=== PATIENT | female | born 1985 | race Two or more races ===

== ENCOUNTER 2018-06-16 10:20 | Emergency (ER) | payer OTHER ==
[2018-06-16 10:27] VITALS: BP 132/67
[2018-06-16] MEDS ORDERED: PSEUDOEPHEDRINE HCL 30 MG TABLET PO ONE (10:40)
[2018-06-16] MEDS ORDERED: GUAIFENESIN 600 MG TABLET.SA PO ONE (10:40)
[2018-06-16] MEDS ORDERED: LORATADINE 10 MG TABLET PO ONE (10:40)
[2018-06-16] MEDS ORDERED: IBUPROFEN 600 MG TABLET PO ONE (10:41)
--- NOTE | 2018-06-16 10:48 | ER Document Report ---
ED ENT - General Chief Complaint: Ear Pain Stated Complaint: EAR PAIN Time Seen by Provider: 06/16/18 10:40 Primary Care Provider: CHAKA LONGO PA-C [NO LOCAL MD] - Follow up in 3-5 days RAKAN POTTER DO [ASSOCIATE] - Follow up as needed Mode of Arrival: Ambulatory Information source: Patient Notes: 32-year-old female presents to ED for complaint of unresolved ear infection. She states she went to [facility] and they told her that she had a right ear infection and started on Cipro drops and amoxicillin. They told her if it was not resolved with these medications that she need to go to the emergency room immediately because she might have a bone infection. Patient is afebrile vital signs are stable patient walks with a even steady gait. TRAVEL OUTSIDE OF THE [place] IN LAST 30 DAYS: No - HPI Patient complains to provider of: Ear problem, Nose problem Onset: Last week Onset/Duration: Gradual Quality of pain: Achy, Dull Severity: Moderate Pain Level: 2 Context: Recent Illness Location of pain: Ears, Neck, Sinus Associated symptoms: Ear pain - Pressure causing decreased hearing, Runny nose, Sinus pain, Sinus drainage Similar symptoms previously: Yes Recently seen / treated by doctor: Yes - Related Data Allergies/Adverse Reactions: No Known Allergies Allergy (Verified 06/16/18 10:22) Past Medical History - General Information source: Patient - Social History Smoking Status: Current Every Day Smoker - vapor cig Frequency of alcohol use: None Drug Abuse: None 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 Lives with: Family Family History: Reviewed & Not Pertinent Patient has suicidal ideation: No Patient has homicidal ideation: No - Medical History Medical History: Other - Ankylosis spondylosis - Past Medical History Cardiac Medical History: Reports: None Pulmonary Medical History: Reports: None EENT Medical History: Reports: None Neurological Medical History: Reports: Hx Migraine Endocrine Medical History: Reports: None, Hx Hypothyroidism Renal/ Medical History: Reports: None Malignancy Medical History: Reports: None GI Medical History: Reports: None Musculoskeletal Medical History: Reports None Skin Medical History: Reports None Psychiatric Medical History: Reports: None Traumatic Medical History: Reports: None Infectious Medical History: Reports: None Surgical Hx: Negative Past Surgical History: Reports: None, Hx Tubal Ligation - Immunizations Immunizations up to date: Yes Hx Diphtheria, Pertussis, Tetanus Vaccination: Yes Review of Systems - Review of Systems Constitutional: No symptoms reported EENT: Ear pain, Nose congestion, Nose discharge, Sinus pressure, Sinus discharge Cardiovascular: No symptoms reported Respiratory: No symptoms reported Gastrointestinal: No symptoms reported Genitourinary: No symptoms reported Female Genitourinary: No symptoms reported Musculoskeletal: No symptoms reported Skin: No symptoms reported Hematologic/Lymphatic: No symptoms reported Neurological/Psychological: No symptoms reported -: Yes All other systems reviewed and negative Physical Exam - Vital signs Vitals: Temp Pulse Resp BP Pulse Ox 97.6 F 81 18 132/67 H 100 06/16/18 10:26 06/16/18 10:26 06/16/18 10:26 06/16/18 10:26 06/16/18 10:26 Interpretation: Normal - General General appearance: Appears well, Alert - HEENT Head: Normocephalic, Atraumatic Eyes: Normal Pupils: PERRL Ears: Normal External canal: Normal Tympanic membrane: Serous effusion. No: Bulging, Loss of landmarks Sinus: Normal Nasal: Purulent discharge, Swelling Mouth/Lips: Normal Mucous membranes: Normal Pharynx: Post nasal drainage Neck: Normal - Respiratory Respiratory status: No respiratory distress Chest status: Nontender Breath sounds: Normal Chest palpation: Normal - Cardiovascular Rhythm: Regular Heart sounds: Normal auscultation Murmur: No - Abdominal Inspection: Normal Distension: No distension Bowel sounds: Normal Tenderness: Nontender Organomegaly: No organomegaly - Back Back: Normal, Nontender - Extremities General upper extremity: Normal inspection, Nontender, Normal color, Normal ROM, Normal temperature General lower extremity: Normal inspection, Nontender, Normal color, Normal ROM, Normal temperature, Normal weight bearing. No: Akbar's sign - Neurological Neuro grossly intact: Yes Cognition: Normal Orientation: AAOx4 Pelzer Coma Scale Eye Opening: Spontaneous Liudmila Coma Scale Verbal: Oriented Pelzer Coma Scale Motor: Obeys Commands Pelzer Coma Scale Total: 15 Speech: Normal Motor strength normal: LUE, RUE, LLE, RLE Sensory: Normal - Psychological Associated symptoms: Normal affect, Normal mood - Skin Skin Temperature: Warm Skin Moisture: Dry Skin Color: Normal Course - Re-evaluation Re-evalutation: 06/16/18 10:54 Signs or symptoms of otitis media or otitis externa. She does have fluid behind her ear from her sinus congestion and swelling. [facility] Muc[facility]x and ibuprofen. She was given the name and number of Dr. Potter if she continues to have pain behind her ear or any increase in other symptoms. Patient was instructed to return to the ED immediately for any redness swollen behind the right ear or other concerns. - Vital Signs Vital signs: Temp Pulse Resp BP Pulse Ox 97.6 F 81 18 132/67 H 100 06/16/18 10:06/16/18 10:06/16/18 10:06/16/18 10:06/16/18 10:26 Discharge - Discharge Clinical Impression: Otalgia of both ears URI (upper respiratory infection) Qualifiers: URI type: unspecified viral URI Qualified Code(s): J06.9 - Acute upper respiratory infection, unspecified Condition: Stable Disposition: HOME, SELF-CARE Additional Instructions: UPPER RESPIRATORY ILLNESS: You have a viral infection of the respiratory passages -- a "cold." This common infection causes nasal congestion, drainage, and often sore throat and cough. It is highly contagious. The disease usually lasts about 10 to 14 days. There is no "cure" for the viral infection -- it must run its course. If there is a complication, such as bacterial infection in the nose, sinuses, middle ear, or bronchial tubes, antibiotics may be required. The antibiotics won't affect the virus. Drink plenty of fluids. A humidifier may help. An expectorant medication or decongestant may make you more comfortable. Use acetaminophen or ibuprofen for fever or aches. See the doctor if fever persists over two days, if there is any significant worsening of your symptoms, or if you simply fail to improve as expected. DECONGESTANT MEDICATION: A decongestant medicine has been suggested. Often this medicine is combined in the same tablet with an antihistamine or expectorant. This type of medicine is helpful in treating a bad cold or sinus condition, as well as in treatment of the nasal congestion of hay fever. It is not of much benefit for lung infections. Decongestant medicines are related to stimulants. They can cause an increase in blood pressure and heart rate. Persons with heart disease and high blood pressure should not take decongestants without discussing this with the physician. If you develop palpitations, chest pain, headache, or tremors, stop the medicine and consult your physician. COUGH-SUPPRESSANT & EXPECTORANT MEDICATION: You are to use a cough medication as needed for relief of symptoms. This medicine is a combination of an expectorant (to make the mucous thinner and more easily "coughed up") and a cough suppressant (to reduce the frequency of coughing). The cough-suppressant medicine is related to narcotics. You may experience mild nausea and sleepiness. Some patients who are very sensitive to narcotics may have stomach pain from this medicine. Taking the medicine with food reduces these side effects. Do not drive or work with machinery until you know how this medicine affects you. The expectorant should have no side effects. Iodine-containing expectorants (such as organidin) should not be taken by persons with active thyroid disease unless approved by your doctor. Call the doctor if you develop shortness of breath, hives, rash, itching, lightheadedness, or severe nausea and vomiting. USE OF ACETAMINOPHEN (Tylenol): Acetaminophen may be taken for pain relief or fever control. It's much safer than aspirin, offering a wider range of "safe" dosages. It is safe during . Some brand names are Tylenol, Panadol, Datril, Anacin 3, Tempra, and Liquiprin. Acetaminophen can be repeated every four hours. The following are maximum recommended dosages: >89 pounds or adults 650 mg to 900 mg Acetaminophen can be repeated every four hours. Maximum dose not to exceed 4000 mg a day. SMOKING: If you smoke, you should stop smoking. The tar and chemicals in cigarette smoke are harmful. Smoking has been shown to cause: emphysema chronic bronchitis lung cancer mouth and throat cancer stomach and pancreas cancer premature aging defects In addition, smoking increases ear and lung infections in children of smokers. You have been treated with Claritin 10 mg, Sudafed 30 mg, Mucinex 600 mg, and ibuprofen 600 mg in the emergency room for your congestion and ear pain. Your sinuses are swollen with postnasal drip which is causing part of the pressure in your ears there is fluid behind your ear problems which is causing the decreased hearing and the pain in your ears. If the medications that I have g iven you today decrease your discomfort then please get these medications [id number] and take them for your symptoms. If you are not feeling some relief from your pain and pressure to your ears by evening please call the ears nose and throat provider that I listed and schedule a appointment for follow-up for your decreased hearing and pain in your ears. If you develop any fever redness or swelling behind her ear return to the ED for a CT of your head. FOLLOW-UP CARE: If you have been referred to a physician for follow-up care, call the physicians office for an appointment as you were instructed or within the next two days. If you experience worsening or a significant change in your symptoms, notify the physician immediately or return to the Emergency Department at any time for re-evaluation. Forms: Elevated Blood Pressure, Smoking Cessation Education Referrals: CHAKA LONGO PA-C [NO LOCAL MD] - Follow up in 3-5 days RAKAN POTTER DO [ASSOCIATE] - Follow up as needed
== END 2018-06-16 10:53 | disposition home or self-care (01) ==
LOC: ER 10:20
DX: H92.03 Otalgia, bilateral (principal); J06.9 Acute upper respiratory infection, unspecified; B97.89 Other viral agents as the cause of diseases classified elsewhere; R09.81 Nasal congestion; J34.89 Other specified disorders of nose and nasal sinuses; R09.89 Other specified symptoms and signs involving the circulatory and respiratory systems; F17.290 Nicotine dependence, other tobacco product, uncomplicated
CPT/HCPCS: 99282

== ENCOUNTER 2019-11-29 10:17 | Emergency (ER) | payer OTHER ==
[2019-11-29 10:25] VITALS: BP 124/63
[2019-11-29] MEDS ORDERED: ACETAMINOPHEN 325 MG TABLET PO ONE (10:39)
[2019-11-29] MEDS ORDERED: HYDROCODONE/ACETAMINOPHEN 5-325 MG (6 TAB/ER DISP) PO PRN (10:43)
--- NOTE | 2019-11-29 10:44 | ER Document Report ---
HPI - HPI Time Seen by Provider: 11/29/19 10:36 Pain Level: 5 Notes: 34-year-old female presents to the emergency room for evaluation of left ankle pain after she tripped an hour ago. Patient states that her foot had fallen asleep, when she got up to walk, she twisted her ankle. Reports pain is 3 out of 5, throbbing achy. Has not tried any [id number] medications for this pain. Denies hitting her head any change in level consciousness. Denies any other area of injury. LMP approximately 2 weeks ago. denies fevers, chills, chest pain,palpitations, shortness of breath, dyspnea, nausea, vomiting, diarrhea, abdominal pain, hematuria,blurred vision, double vision, loss of vision, speech changes, LH, dizziness, syncope, headaches, wheezing, ST, URI, neck pain, weakness, bowel or bladder dysfunction, saddle anesthesia, numbness or tingling in bilateral upper or lower extremities equally, muscle paralysis, weakness in bilateral upper or lower extremities equally or rash. Denies IV drug use. MEDICATIONS: I agree with the patient medications as charted by the RN. ALLERGIES: I agree with the allergies as charted by the RN. PAST MEDICAL HISTORY/PAST SURGICAL HISTORY: Reviewed and agree as charted by RN. SOCIAL HISTORY: Reviewed and agree as charted by RN. FAMILY HISTORY: No significant familial comorbid conditions directly related to patient complaint EXAM: Reviewed vital signs as charted by RN. REVIEW OF SYSTEMS:reviewed vital signs by RN CONSTITUTIONAL : Denies fever, chills, or sweats. Denies recent illness. EENT: Denies eye, ear, throat, or mouth pain or symptoms. Denies nasal or sinus congestion or discharge. Denies throat, tongue, or mouth swelling or difficulty swallowing. CARDIOVASCULAR: Denies chest pain. Denies palpitations or racing or irregular heart beat. Denies ankle edema. RESPIRATORY: Denies cough, cold, or chest congestion. Denies shortness of breath, difficulty breathing, or wheezing. GASTROINTESTINAL: Denies abdominal pain or distention. Denies nausea, vomiting, or diarrhea. Denies blood in vomitus, stools, or per rectum. Denies black, tarry stools. Denies constipation. GENITOURINARY: Denies difficulty urinating, painful urination, burning, frequency, blood in urine, or discharge. FEMALE GENITOURINARY: Denies vaginal bleeding, heavy or abnormal periods, irregular periods. Denies vaginal discharge or odor. MUSCULOSKELETAL: reports left ankle pain. Denies back or neck pain or stiffness. Denies joint pain or swelling. SKIN: Denies rash, lesions or sores. HEMATOLOGIC : Denies easy bruising or bleeding. LYMPHATIC: Denies swollen, enlarged glands. NEUROLOGICAL: Denies confusion or altered mental status. Denies passing out or loss of consciousness. Denies dizziness or lightheadedness. Denies headache. Denies weakness or paralysis or loss of use of either side. Denies problems with gait or speech. Denies sensory loss, numbness, or tingling. Denies seizures. PSYCHIATRIC: Denies anxiety or stress. Denies depression, suicidal ideation, or homicidal ideation. ALL OTHER SYSTEMS REVIEWED AND NEGATIVE. PHYSICAL EXAMINATION: GENERAL: Well-appearing, well-nourished and in no acute distress. HEAD: Atraumatic, normocephalic. EYES: Pupils equal round and reactive to light, extraocular movements intact, conjunctiva are normal. ENT: Nares patent, oropharynx clear without exudates. Moist mucous membranes. NECK: Normal range of motion, supple without lymphadenopathy LUNGS: Breath sounds clear to auscultation bilaterally and equal. No wheezes rales or rhonchi. HEART: Regular rate and rhythm without murmurs ABDOMEN: Soft, nontender, nondistended abdomen. No guarding, no rebound. No masses appreciated. Female : deferred Musculoskeletal: Normal range of motion, no pitting or edema. No cyanosis. left ankle with swelling, tenderness on lateral aspect of ankle. pain with inversion. squeeze test negative. dtr +2 BLE. Limited APROM. distal pulses + 2 BLE equally. Full motor and sensory function of right lower extremity, some limited APROM of left ankle due to pain. No noted open wounds or abrasion. Normal gait. No vascular compromise. Peroneal nerve is intact with strong eversion and plantar flexion. Negative anterior drawer test. muscle strength 5/5 in BLE equally. NEUROLOGICAL: Cranial nerves grossly intact. Normal speech, normal gait. Normal sensory, motor exams PSYCH: Normal mood, normal affect. SKIN: Warm, Dry, normal turgor, no rashes or lesions noted. Dictation was performed using [employer] recognition software - REPRODUCTIVE Reproductive: DENIES: : - MUSCULOSKELETAL Musculoskeletal: REPORTS: Extremity pain Past Medical History - General Information source: Patient - Social History Smoking Status: Never Smoker Chew tobacco use (# tins/day): No Frequency of alcohol use: None Drug Abuse: None Family History: Reviewed & Not Pertinent Patient has homicidal ideation: No Neurological Medical History: Reports: Hx Migraine Endocrine Medical History: Reports: Hx Hypothyroidism Renal/ Medical History: Denies: Hx Peritoneal Dialysis Past Surgical History: Reports: Hx Tubal Ligation - Immunizations Immunizations up to date: Yes Hx Diphtheria, Pertussis, Tetanus Vaccination: Yes Vertical Provider Document - CONSTITUTIONAL Agree With Documented VS: Yes Exam Limitations: No Limitations General Appearance: WD/WN - INFECTION CONTROL TRAVEL OUTSIDE OF THE [place] IN LAST 30 DAYS: No Course - Re-evaluation Re-evalutation: 11/29/19 10:59 Afebrile vital stable no distress. Nurses notes reviewed. xray of ankle negative for fracture or dislocation. Patient placed in a Velcro air splint and given crutches. Advised to elevate above level of heart. Rice therapy. Advised to follow-up with forensic identification specialist within the next 5 days. Advised to get ankle re-x-rayed if she is experiencing worsening symptoms. Advised to not drive, drink alcohol or operate machinery while taking medication because s edation apparently had function. After performing a Medical Screening Examination, I estimate there is LOW risk for OPEN FRACTURE, COMPARTMENT SYNDROME, DEEP VENOUS THROMBOSIS, ACUTE TENDON RUPTURE, or NEUROVASCULAR INJURY thus I consider the discharge disposition reasonable. I have reevaluated this patient multiple times and no significant life threatening changes are noted. The patient and I have discussed the diagnosis and risks, and we agree with discharging home to closely follow-up with their primary doctor or the referral orthopedist with the understanding that symptoms and presentations can change. We also discussed returning to the Emergency Department immediately if new or worsening symptoms occur. We have discussed the symptoms which are most concerning (e.g., changing or worsening pain, numbness, weakness) that necessitate immediate return 11/29/19 13:24 - Vital Signs Vital signs: Temp Pulse Resp BP Pulse Ox 98.4 F 75 18 124/63 11/29/19 10:32 11/29/19 10:23 11/29/19 10:23 11/29/19 10:23 Discharge - Discharge Clinical Impression: Left ankle sprain Qualifiers: Encounter type: initial encounter Condition: Stable Disposition: HOME, SELF-CARE Instructions: Loyd Wrap ([facility]), Ankle Stirrup Splint ([facility]), Use of Crutches ([facility]), Ice & Elevation ([facility]), Oral Narcotic Medication ([facility]), Sprained Ankle ([facility]) Additional Instructions: Your x-ray does not show any acute fracture. You have a sprained ankle. Keep the area elevated, apply ice 20 minutes every 2 hours, and use crutches as needed. You should take ibuprofen 600 mg every 6 hours as needed for pain. Please return if you have worsening pain and swelling, fever greater than 101, you notice spreading redness from the area, or have any other symptoms that are concerning to you. Please follow-up with orthopedic surgery if your symptoms have not improved in the next 2-3 weeks. Return immediately for any new or worsening symptoms. Follow up with primary care provider, call tomorrow to make followup appointment. Referrals: MARILY RAWLS MD [Primary Care Provider] - Follow up as needed KIRSTY EPPS MD [ACTIVE STAFF] - Follow up in 3-5 days
--- NOTE | 2019-11-29 11:19 | RADIOLOGY REPORT (SQ) ---
EXAM DESCRIPTION: ANKLE LEFT COMPLETE IMAGES COMPLETED DATE/TIME: 11/29/2019 11:04 am REASON FOR STUDY: left ankle injury COMPARISON: None. NUMBER OF VIEWS: Three views. TECHNIQUE: AP, lateral, and oblique radiographic images acquired of the left ankle. LIMITATIONS: None. FINDINGS: MINERALIZATION: Normal. BONES: No acute fracture or dislocation. No worrisome bone lesions. JOINTS: No effusions. SOFT TISSUES: Lateral swelling. OTHER: No other significant finding. IMPRESSION: Soft tissue injury. TECHNICAL DOCUMENTATION: JOB ID: [id number] 2010 [employer]- All Rights Reserved Reading location - IP/workstation name: [email or web address]
== END 2019-11-29 13:20 | disposition home or self-care (01) ==
LOC: ER 10:17
DX: S93.402A Sprain of unspecified ligament of left ankle, initial encounter (principal); W01.0XXA Fall on same level from slipping, tripping and stumbling without subsequent striking against object, initial encounter
CPT/HCPCS: 99283

== ENCOUNTER 2020-03-22 16:49 | Emergency (ER) | payer OTHER ==
[2020-03-22 17:44] VITALS: BP 108/68
[2020-03-22] MEDS ORDERED: KETOROLAC TROMETHAMINE INJ/PF 30 MG/1 ML SDV IM ONE (20:10)
--- NOTE | 2020-03-22 20:12 | ER Document Report ---
ED Fever - General Chief Complaint: Fever Stated Complaint: FEVER, BODY ACHE, Time Seen by Provider: 03/22/20 20:03 Primary Care Provider: MARILY RAWLS MD [Primary Care Provider] - Follow up as needed Mode of Arrival: Ambulatory Information source: Patient TRAVEL OUTSIDE OF THE [place] IN LAST 30 DAYS: No - HPI Patient complains to provider of: Fever, body aches Notes: Patient here with complaints of fever of 101 yesterday with generalized body aches. The patient states that she has a history of ankylosing spondylitis she is having some pain at times. She has been taking a low-dose prednisone for the last several months prescribed by her doctor. She denies taking any chronic pain medication. She states that since yesterday she has had body aches and the fever. She denies any significant cough. She denies any chest pain or shortness of breath. No abdominal pain. No nausea, vomiting, diarrhea. No rash. No severe headache. No blurred or loss of vision. No neck stiffness. Nothing seems to make her pain better or worse. She denies any known specific Covid exposure. She denies any other specific complaints at this time. - Related Data Allergies/Adverse Reactions: No Known Allergies Allergy (Verified 11/29/19 10:31) Home Medications: renvoc. prednisone 5 daily. claritin Past Medical History - Social History Smoking Status: Never Smoker Chew tobacco use (# tins/day): No Frequency of alcohol use: None Drug Abuse: None Family History: Reviewed & Not Pertinent Neurological Medical History: Reports: Hx Migraine Endocrine Medical History: Reports: Hx Hypothyroidism Renal/ Medical History: Denies: Hx Peritoneal Dialysis Past Surgical History: Reports: Hx Tubal Ligation - Immunizations Immunizations up to date: Yes Hx Diphtheria, Pertussis, Tetanus Vaccination: Yes Review of Systems - Review of Systems -: Yes All other systems reviewed and negative Physical Exam - Vital signs Vitals: Temp Pulse Resp BP Pulse Ox 99.3 F 91 18 108/68 100 03/22/20 17:41 03/22/20 17:41 03/22/20 17:41 03/22/20 17:41 03/22/20 17:41 - Notes Notes: GENERAL: alert, cooperative, nontoxic, no distress. HEAD: normocephalic, atraumatic EYES: conjunctiva pink without discharge, no external redness or swelling. EARS: no external swelling, no external redness, no mastoid redness, swelling, tenderness. Ear canals are clear without swelling or drainage. TMs pearly lara, no redness, no bulging, normal landmarks, no perforation. NOSE: atraumatic, no external swelling. clear rhinorrhea noted. MOUTH/THROAT: mucous membranes moist and pink, posterior pharynx without erythema, swelling, exudate. No trismus or drooling. Voice is normal, no stridor. NECK: soft, supple, full range of motion, no meningismus. CHEST: no distress, lungs clear and equal throughout. No wheezing, rales, rhonchi. CARDIAC: regular rate and rhythm, no murmur EXTREMITIES: full range of motion of all extremities. No redness, no swelling. NEURO: alert and oriented A&O3, no focal deficits, full range of motion of all extremities. PYSCH: appropriate mood, affect. Patient is cooperative. SKIN: pink, warm, dry, no rash. Course - Re-evaluation Re-evalutation: 03/22/20 22:18 Patient resting comfortably at this time. Vital results with the patient. Questions answered. Will discharge home. Patient is nontoxic-appearing with stable vitals. She is here with complaints of body aches and fever. She is afebrile here. She has no signs of meningitis or significant systemic illness at this time. She denies any sore throat. No chest pain or shortness of breath. No significant cough. Influenza screen is negative. In the midst of this Covid 19 pandemic, Covid swab has been ordered. Patient will be instructed to quarantine until she gets her results. If she has positive, she will be instructed to quarantine for 10 days. She can take Tylenol as needed for pain. She can take zinc and vitamin C. She will prescribed NSAIDs for pain. Drink plenty fluids. Follow-up for any worsening pain, high fever, persistent vomiting, or for any further concerns. The patient's emergency department workup and current diagnosis were explained to the patient and or family. Follow-up instructions were provided. Medications if prescribed were discussed. Instructions for when to return to the emergency department including specific worrisome symptoms were discussed with the patient and/or family. - Vital Signs Vital signs: Temp Pulse Resp BP Pulse Ox 99.3 F 91 18 108/68 100 01/07/21 17:41 03/22/20 17:41 03/22/20 17:41 03/22/20 17:41 03/22/20 17:41 - Laboratory Results Critical Laboratory Results Reviewed: No Critical Results - Radiology Results Critical Radiology Results Reviewed: No Critical Results Discharge - Discharge Clinical Impression: Viral syndrome, Person under investigation for COVID-19 Condition: Stable Disposition: HOME, SELF-CARE Instructions: COVID-19 Guidance for Persons Under Investigation, Fever ([facility]), Viral Syndrome ([facility]) Additional Instructions: Take Tylenol as needed for pain. Take medication as prescribed. Drink plenty fluids. You can take [id number] zinc and vitamin C as needed as well. You should quarantine until you get your test results. If positive, the CDC recommends that you quarantine for 10 days from the start of symptoms plus had no symptoms for 2 to 3 days. If your swab is negative and you are feeling better, you no longer need to quarantine. If at any point you feel like you are getting worse, chest pain or shortness of breath, persistent vomiting, severe headaches, neck stiffness, or any further concerns should be evaluated right away. Prescriptions: Diclofenac Sodium [Voltaren 50 Mg Tablet.] 50 mg PO BID #20 tablet. Referrals: MARILY RAWLS MD [Primary Care Provider] - Follow up as needed
[2020-03-22 22:06] LABS: A TYPE INFLUENZA AG NEGATIVE (NEGATIVE); B INFLUENZA AG NEGATIVE (NEGATIVE)
== END 2020-03-22 22:38 | disposition home or self-care (01) ==
LOC: ER 16:49
DX: U07.1 COVID-19 (principal); R50.9 Fever, unspecified; B34.9 Viral infection, unspecified; M79.10 Myalgia, unspecified site; Z98.51 Tubal ligation status
CPT/HCPCS: 99284; 96372; 87635; 87804; J1885; C9803